=== PATIENT | male | born 1960 | race Caucasian/White ===

== ENCOUNTER 2019-12-07 04:57 | Emergency (ER) | payer OTHER ==
[~2019-12-07] VITALS: Ht 175.3 cm; Wt 113.4 kg
[2019-12-07] MEDS ORDERED: SODIUM CHLORIDE 0.9% 500 ML IVB ONE (08:42)
[2019-12-07] MEDS ORDERED: SODIUM CHLORIDE 0.9% 1,000 ML IV ONE (08:42)
[2019-12-07] MEDS ORDERED: PROMETHAZINE HCL 25 MG/ML 1ML IV PRN (08:45)
[2019-12-07] MEDS ORDERED: KETOROLAC TROMETH 30 MG/ML 1ML VIAL IV ONE (08:45)
[2019-12-07 08:48] LABS: Urine WBC None Seen /hpf (0 - 3)
[2019-12-07 08:54] LABS: Basophils # (auto) 0.1 10 ^3/uL (0-0.2); Hemoglobin 17.8 g/dL (13.5-17.5); Monocytes # (auto) 0.8 10 ^3/uL (0-1.3); Neutrophils # (auto) 6.4 10 ^3/uL (1.6-8.6)
[2019-12-07 08:55] LABS: Basophils % (auto) 0.9 % (0.0-2.0); Eosinophils # (auto) 0.2 10 ^3/uL (0-0.8); Eosinophils % (auto) 2.4 % (0.0-7.0); Hematocrit 52.6 % (41.0-53.0); Lymphocytes % (auto) 20.7 % (10.0-50.0); Mean Corpuscular Hemoglobin 33.3 pg (28.0-32.0); Mean Corpuscular Hgb Conc. 33.8 g/dL (32.0-36.0); Mean Corpuscular Volume 98.5 fL (80.0-100.0); Monocytes % (auto) 8.8 % (0.0-12.0); Neutrophils % (auto) 67.2 % (37.0-80.0); Nucleated Red Blood Cells % 0.1 %; Platelet Count (auto) 167 10^3/uL (140-450); Red Blood Cells 5.34 10^6/uL (4.5-5.90); Red Cell Distribution Width 13.3 % (11.8-14.3); White Blood Cell 9.6 10^3/uL (4.4-10.8)
[2019-12-07 09:01] LABS: Urine Bacteria NONE SEEN /hpf (None Seen); Urine Blood Negative /uL (Negative); Urine Specific Gravity 1.011 (1.001-1.035)
[2019-12-07 09:17] LABS: Albumin 3.9 g/dL (3.4-5.0); Anion Gap 3 (5-15); Blood Urea Nitrogen 16 mg/dL (7-18); Calcium 10.1 mg/dL (8.5-10.1); Carbon Dioxide 28 mmol/L (21-32); Chloride 108 mmol/L (98-107); Potassium 4.2 mmol/L (3.5-5.1); Sodium 139 mmol/L (136-145)
[2019-12-07 09:18] LABS: Alcohol, Urine < 3.0 mg/dL (0-10); Amphetamine Screen, Urine NEGATIVE (NEGATIVE); Barbiturate Scree,Urine NEGATIVE (NEGATIVE); Benzodiazephine Screen, Urine NEGATIVE (NEGATIVE); Cannabinoid Screen, Urine NEGATIVE (NEGATIVE); Cocaine Screen, Urine NEGATIVE (NEGATIVE); Opiate Scree,Urine NEGATIVE (NEGATIVE); Phencyclidine Screen, Urine NEGATIVE (NEGATIVE)
[2019-12-07 09:20] LABS: Alanine Aminotransferase 78 U/L (16-61); Aspartate Aminotransferase 73 U/L (15-37); BUN/Creatinine Ratio 13.7; GFR African American 82 mL/min; GFR Non-African American 67 mL/min; Glucose 102 mg/dL (74-106); Lipase 398 U/L (73-393)
[2019-12-07 09:25] LABS: Alkaline Phosphatase 91 U/L (45-117); Bilirubin, Total 1.1 mg/dL (0.2-1.0); Total Protein 7.7 g/dL (6.4-8.2)
[2019-12-07 11:00] VITALS: BP 131/85
== END 2019-12-07 11:46 | disposition home or self-care (01) ==
LOC: ER 04:57
DX: K40.20 Bilateral inguinal hernia, without obstruction or gangrene, not specified as recurrent (principal); R74.8 Abnormal levels of other serum enzymes; N40.0 Benign prostatic hyperplasia without lower urinary tract symptoms; R35.0 Frequency of micturition; K21.9 Gastro-esophageal reflux disease without esophagitis; I10 Essential (primary) hypertension; F17.210 Nicotine dependence, cigarettes, uncomplicated; Z90.49 Acquired absence of other specified parts of digestive tract
CPT/HCPCS: 36415; 71045; 74176; 80053; 80307; 81001; 83690; 83735; 84484; 85025; 93005; 96361; 96374; 96375; 99285; J1885; J2550; J7030; J7040

== ENCOUNTER 2020-03-03 07:13 | Inpatient (IN) | payer OTHER ==
[~2020-03-03] VITALS: Ht 175.3 cm; Wt 111.5 kg
[2020-03-03] MEDS ORDERED: NITROGLYCERIN 0.4 MG SL TAB SL ONE (07:30)
[2020-03-03] MEDS ORDERED: ASPirin 81 mg TAB PO ONE (07:30)
[2020-03-03 07:54] LABS: Basophils # (auto) 0.1 10 ^3/uL (0-0.2); Basophils % (auto) 0.9 % (0.0-2.0); Eosinophils # (auto) 0.2 10 ^3/uL (0-0.8); Eosinophils % (auto) 2.9 % (0.0-7.0); Hematocrit 50.4 % (41.0-53.0); Lymphocytes # (auto) 2.1 10 ^3/uL (0.4-5.4); Lymphocytes % (auto) 27.4 % (10.0-50.0); Mean Corpuscular Hemoglobin 32.8 pg (28.0-32.0); Mean Corpuscular Hgb Conc. 33.7 g/dL (32.0-36.0); Mean Corpuscular Volume 97.3 fL (80.0-100.0); Monocytes # (auto) 0.7 10 ^3/uL (0-1.3); Monocytes % (auto) 9.1 % (0.0-12.0); Neutrophils # (auto) 4.6 10 ^3/uL (1.6-8.6); Neutrophils % (auto) 59.7 % (37.0-80.0); Nucleated Red Blood Cells % 0.1 %; Platelet Count (auto) 168 10^3/uL (140-450); Red Blood Cells 5.19 10^6/uL (4.5-5.90); Red Cell Distribution Width 13.1 % (11.8-14.3); White Blood Cell 7.7 10^3/uL (4.4-10.8)
[2020-03-03 08:16] LABS: Albumin 3.4 g/dL (3.4-5.0); Potassium 3.9 mmol/L (3.5-5.1)
[2020-03-03 08:19] LABS: Urine Bacteria NONE SEEN /hpf (None Seen); Urine Blood Negative /uL (Negative); Urine Hyaline Cast FEW /lpf (0 - 2); Urine Mucus FEW (None Seen); Urine Specific Gravity 1.017 (1.001-1.035); Urine WBC 2 /hpf (0 - 3)
[2020-03-03 08:21] LABS: BUN/Creatinine Ratio 6.7; Bilirubin, Total 0.7 mg/dL (0.2-1.0); Total Protein 6.8 g/dL (6.4-8.2)
[2020-03-03] MEDS ORDERED: hydrALAZINE HCL 20 MG/ML VL IV PRN (12:15)
[2020-03-03] MEDS ORDERED: ONDANSETRON HCL 4 MG/2 ML VIAL IV PRN (12:15)
[2020-03-03] MEDS ORDERED: MORPHINE SULF INJ 2 MG/ML SYRINGE 1ML IV PRN ×2 (12:15)
[2020-03-03] MEDS ORDERED: NITROGLYCERIN 0.4 MG SL TAB SL PRN (12:15)
[2020-03-03] MEDS ORDERED: ALPRAZolam 0.25 MG TAB PO PRN (12:15)
[2020-03-03] MEDS ORDERED: HYDROcodone-ACET 5/325MG TAB PO PRN (12:15)
[2020-03-03] MEDS ORDERED: ACETAMINOPHEN 500 MG TAB PO PRN (12:15)
[2020-03-03 16:33] VITALS: BP 124/78
[2020-03-03] MEDS: TAMSULOSIN HYDROCHLORIDE 0.4 MG CAP PO SCH (18:00)
--- NOTE | 2020-03-03 19:30 | NUR ---
Opening Shift Note Assumed care of patient, awake and alert. No S/S of distress/SOB or pain. Instructed on POC and to call for assist PRN, will continue to monitor for changes Q1hr and PRN.
--- NOTE | 2020-03-03 21:35 | NUR ---
pt is having SOB, elevate HOB, O2 96% on 3L, VS stable, paged RT for CPAP initiation, paged hospitalist for breathing treatment, new order received, pt refused breathing treatment for now, will continue to monitor
[2020-03-03] MEDS ORDERED: ALBUTEROL SULF 2.5 MG/0.5ML(0.5%) NEB SOLN NEB PRN (21:45)
[2020-03-03 22:00] VITALS: BP 113/70
[2020-03-03] MEDS: METOPROLOL TARTRATE 25 MG TAB PO SCH ×2 (22:00→22:07)
[2020-03-03] MEDS: ATORVASTATIN 20 MG TAB PO SCH (22:07)
--- NOTE | 2020-03-03 23:50 | NUR ---
paged hospitalist regarding pt's critical value Trop=0.532. awaiting for callback
[2020-03-04] MEDS ORDERED: GABA300C10 PO (01:19)
[2020-03-04] MEDS ORDERED: ATOR10TA52 PO (01:19)
[2020-03-04] MEDS ORDERED: ATEN50TA PO (01:19)
[2020-03-04] MEDS ORDERED: PANT40TA2 PO (01:19)
[2020-03-04] MEDS ORDERED: ALBU0.5N2 IN (01:19)
[2020-03-04] MEDS ORDERED: TAMS0.4C36 PO (01:21)
--- NOTE | 2020-03-04 02:35 | NUR ---
spoke with hospitalist regarding pt's trop critical value result. no new order received
[2020-03-04 05:00] VITALS: BP 131/78
--- NOTE | 2020-03-04 06:40 | NUR ---
Respiratory note: PT OFF CPAP MACHINE. PT FOUND ON ROOM AIR SP02 97%, HR 86, RR 20. PT IN NO RESPIRATORY DISTRESS AT THIS TIME. NO INDICATION FOR TX AT THIS TIME. PT AWARE TO HAVE RT PAGED IF SOB.
--- NOTE | 2020-03-04 07:25 | NUR ---
pt went down to smoke without asking me. came back after 12mins. informed the risk,pt signed AMA to smoke
--- NOTE | 2020-03-04 07:30 | NUR ---
closing note endorsed care to RAY Edwards. Denies pain at this time
[2020-03-04 09:00] VITALS: BP 129/87
[2020-03-04 09:24] LABS: Basophils # (auto) 0.1 10 ^3/uL (0-0.2); Basophils % (auto) 0.8 % (0.0-2.0); Eosinophils # (auto) 0.2 10 ^3/uL (0-0.8); Eosinophils % (auto) 2.7 % (0.0-7.0); Hematocrit 48.5 % (41.0-53.0); Hemoglobin 16.3 g/dL (13.5-17.5); Lymphocytes # (auto) 1.7 10 ^3/uL (0.4-5.4); Lymphocytes % (auto) 24.6 % (10.0-50.0); Mean Corpuscular Hemoglobin 32.9 pg (28.0-32.0); Mean Corpuscular Hgb Conc. 33.6 g/dL (32.0-36.0); Mean Corpuscular Volume 97.9 fL (80.0-100.0); Monocytes # (auto) 0.4 10 ^3/uL (0-1.3); Monocytes % (auto) 5.2 % (0.0-12.0); Neutrophils # (auto) 4.7 10 ^3/uL (1.6-8.6); Neutrophils % (auto) 66.7 % (37.0-80.0); Platelet Count (auto) 152 10^3/uL (140-450); Red Blood Cells 4.95 10^6/uL (4.5-5.90); Red Cell Distribution Width 13.1 % (11.8-14.3); White Blood Cell 7.1 10^3/uL (4.4-10.8)
[2020-03-04 09:46] LABS: INR 1.03 (0.9-1.15); Partial Thromboplastin Time 25.6 sec (23.0-31.2); Potassium 4.2 mmol/L (3.5-5.1)
[2020-03-04] MEDS ORDERED: ASPirin-EC 81 mg tab PO SCH (10:00)
[2020-03-04] MEDS ORDERED: PANTOPRAZOLE 40 MG TAB PO SCH (10:00)
[2020-03-04] MEDS: METOPROLOL TARTRATE 25 MG TAB PO SCH ×2 (10:21→21:25)
--- NOTE | 2020-03-04 11:15 | NUR ---
Patient down to smoke.
--- NOTE | 2020-03-04 11:24 | NUR ---
patient back from smoking.
[2020-03-04] MEDS ORDERED: MET25T PO (11:56)
[2020-03-04] MEDS ORDERED: ASPI-543 PO (11:56)
[2020-03-04] MEDS ORDERED: NICOTINE 21MG/24 HR TOPICAL PATCH TD SCH (12:00)
--- NOTE | 2020-03-04 12:00 | NUR ---
covid swab taken and sent down to lab.
[2020-03-04] MEDS ORDERED: HEPARIN DRIP/D5W 100UNITS/ML 250 ML IV SCH (12:15)
[2020-03-04 13:00] VITALS: BP 137/78
--- NOTE | 2020-03-04 13:06 | NUR ---
Dr Bree gama in regards to heparin bolus, pharmacy needs clarification if he needs a blous or not. Addendum: 03/04/20 at 1308 by Grace Galvan RN correction "bolus"
--- NOTE | 2020-03-04 13:08 | NUR ---
Bree Pierce called back hold heparin drip since trop trending down. update Dr when Dylan sees patients on what he wants to do next.
[2020-03-04 13:09] LABS: Basophils # (auto) 0.1 10 ^3/uL (0-0.2); Eosinophils # (auto) 0.2 10 ^3/uL (0-0.8); Hemoglobin 17.4 g/dL (13.5-17.5); Lymphocytes # (auto) 2.3 10 ^3/uL (0.4-5.4); Mean Corpuscular Hemoglobin 33.2 pg (28.0-32.0); Mean Corpuscular Hgb Conc. 34.2 g/dL (32.0-36.0); Mean Corpuscular Volume 97.3 fL (80.0-100.0); Monocytes # (auto) 0.6 10 ^3/uL (0-1.3); Monocytes % (auto) 8.3 % (0.0-12.0); Neutrophils # (auto) 4.6 10 ^3/uL (1.6-8.6); Neutrophils % (auto) 59.7 % (37.0-80.0); Platelet Count (auto) 184 10^3/uL (140-450); Red Blood Cells 5.24 10^6/uL (4.5-5.90); Red Cell Distribution Width 13.2 % (11.8-14.3); White Blood Cell 7.8 10^3/uL (4.4-10.8)
[2020-03-04 13:43] LABS: INR 0.99 (0.9-1.15); Partial Thromboplastin Time 24.6 sec (23.0-31.2)
[2020-03-04] MEDS ORDERED: ENOXAPARIN SOD 120 MG/0.8 ML SYRINGE SC ONE (14:15)
--- NOTE | 2020-03-04 14:26 | NUR ---
1245 03/04/20 - Contacted by [facility] case management manager Joleen Ann regarding pending transfer of this patient to [facility]. I provided her with a verbal update on the status of the patient. Contacted [facility] at [phone] placed patient on 'will call" status. Provided [facility] with authorization [id number] provided by [facility] case management manager. COVID test requested by [facility] case management manager. Faxed to [facility] at [phone] face sheet, H/P, ECHO, labs, meds, and discharge summary. Informed nurse SM of information as stated above. Pending bed availability and results of COVID test.
--- NOTE | 2020-03-04 15:57 | NUR ---
covid results given to alonzo casework manager
[2020-03-04 16:43] VITALS: BP 131/74
[2020-03-04] MEDS: TAMSULOSIN HYDROCHLORIDE 0.4 MG CAP PO SCH (17:49)
--- NOTE | 2020-03-04 18:10 | NUR ---
received call with room number 201a and report # [phone] ext [phone].
--- NOTE | 2020-03-04 18:30 | NUR ---
gave report to RN at [facility].
--- NOTE | 2020-03-04 18:31 | NUR ---
Called [facility] for transport ETA [id number].
--- NOTE | 2020-03-04 18:37 | NUR ---
updated dr kaye on patients transfer. updated patient.
--- NOTE | 2020-03-04 19:30 | NUR ---
Opening Shift Note Assumed care of patient, awake and alert. No S/S of distress/SOB or pain. As per report, pt is ready to go, awaiting for transport between 1900 and 1999.
[2020-03-04] MEDS: ATORVASTATIN 20 MG TAB PO SCH (21:24)
--- NOTE | 2020-03-04 22:15 | NUR ---
pt transferred to [facility], VS stable, denies any distress/pain at this time
[2020-03-05] MEDS ORDERED: ASPirin 81 mg TAB PO SCH (10:00)
== END 2020-03-04 22:35 | disposition short-term general hospital (02) | DRG 282 ==
LOC: EDBD 07:13 → ER 07:13 → TELE 07:14 → TELE-WESTW 18:11
PROVIDERS: ADMIT Nurse Practitioner Acute Care; ATTEND Internal Medicine
PROC: 5A09357 Assistance with Respiratory Ventilation, Less than 24 Consecutive Hours, Continuous Positive Airway Pressure (ICD-10-PCS; principal; 2020-03-03)
DX: I21.4 Non-ST elevation (NSTEMI) myocardial infarction (principal); E66.9 Obesity, unspecified; N40.0 Benign prostatic hyperplasia without lower urinary tract symptoms; I10 Essential (primary) hypertension; Z20.828 Contact with and (suspected) exposure to other viral communicable diseases; G47.33 Obstructive sleep apnea (adult) (pediatric); E78.5 Hyperlipidemia, unspecified; K21.9 Gastro-esophageal reflux disease without esophagitis; Z86.73 Personal history of transient ischemic attack (TIA), and cerebral infarction without residual deficits; Z90.49 Acquired absence of other specified parts of digestive tract; Z72.0 Tobacco use; Z88.0 Allergy status to penicillin; Z88.8 Allergy status to other drugs, medicaments and biological substances; Z68.36 Body mass index [BMI] 36.0-36.9, adult
CPT/HCPCS: 36415; 71045; 80048; 80053; 80061; 81001; 84443; 84484; 85025; 85379; 85610; 85730; 86141; 93005; 93306; 93886; 94660; G0378

== ENCOUNTER 2021-05-05 22:32 | Inpatient (IN) | payer OTHER, MEDICAID ==
[~2021-05-05] VITALS: Ht 175.3 cm; Wt 108.5 kg
[~2021-05-05 22:32] MED LIST: ALBU0.5N2 IN; ASPI-543 PO; ATOR10TA52 PO; GABA300C10 PO; MET25T PO; PANT40TA2 PO; TAMS0.4C36 PO
[2021-05-06] MEDS ORDERED: MORPHINE SULFATE 4 MG/ML SYR/VIAL IV ONE (00:15)
[2021-05-06 00:30] LABS: Basophils # (auto) 0 10 ^3/uL (0-0.2); Basophils % (auto) 0.2 % (0.0-2.0); Eosinophils # (auto) 0 10 ^3/uL (0-0.8); Eosinophils % (auto) 0.5 % (0.0-7.0); Hematocrit 46.4 % (41.0-53.0); Hemoglobin 15.7 g/dL (13.5-17.5); Lymphocytes # (auto) 1.8 10 ^3/uL (0.4-5.4); Lymphocytes % (auto) 22.7 % (10.0-50.0); Mean Corpuscular Hemoglobin 32.4 pg (28.0-32.0); Mean Corpuscular Hgb Conc. 33.9 g/dL (32.0-36.0); Mean Corpuscular Volume 95.8 fL (80.0-100.0); Monocytes # (auto) 0.7 10 ^3/uL (0-1.3); Monocytes % (auto) 9.4 % (0.0-12.0); Neutrophils # (auto) 5.3 10 ^3/uL (1.6-8.6); Neutrophils % (auto) 67.2 % (37.0-80.0); Nucleated Red Blood Cells % 0.1 %; Red Blood Cells 4.85 10^6/uL (4.5-5.90); Red Cell Distribution Width 12.9 % (11.8-14.3); White Blood Cell 7.9 10^3/uL (4.4-10.8)
[2021-05-06 00:37] LABS: Potassium 3.8 mmol/L (3.5-5.1)
[2021-05-06] MEDS ORDERED: MORPHINE SULFATE 4 MG/ML SYR/VIAL ONE (00:41)
[2021-05-06] MEDS ORDERED: MORPHINE SULFATE INJECTION 2 MG/ML SYRG ONE (00:43)
[2021-05-06 00:44] LABS: BUN/Creatinine Ratio 8.6; Bilirubin, Total 0.9 mg/dL (0.2-1.0); Calcium 8.9 mg/dL (8.5-10.1); Magnesium 1.7 mg/dL (1.6-2.6); Total Protein 6.7 g/dL (6.4-8.2)
[2021-05-06] MEDS ORDERED: CLOPIDOGREL BISULFATE 75 MG TAB PO ONE (01:30)
[2021-05-06] MEDS ORDERED: ASPirin 81 mg TAB PO ONE (01:30)
[2021-05-06] MEDS ORDERED: ASPirin 81 mg TAB ONE (01:38)
[2021-05-06] MEDS ORDERED: CLOPIDOGREL 300 MG TAB ONE (01:42)
[2021-05-06] MEDS ORDERED: HEPARIN DRIP/D5W 100UNITS/ML 250 ML IV SCH (02:45)
[2021-05-06] MEDS ORDERED: HEPARIN SODIUM (PORCINE) 5000 UNITS/ML 1ML VIAL IV ONE (02:45)
[2021-05-06] MEDS ORDERED: MORPHINE SULFATE INJECTION 2 MG/ML SYRG IV PRN (02:45)
[2021-05-06] MEDS ORDERED: ONDANSETRON HCL 4 MG/2 ML VIAL IV PRN (02:45)
[2021-05-06] MEDS ORDERED: NITROGLYCERIN 0.4 MG SL TAB SL PRN (02:45)
[2021-05-06 04:13] LABS: Basophils # (auto) 0 10 ^3/uL (0-0.2); Basophils % (auto) 0.4 % (0.0-2.0); Eosinophils # (auto) 0.1 10 ^3/uL (0-0.8); Eosinophils % (auto) 0.7 % (0.0-7.0); Hematocrit 46.3 % (41.0-53.0); Hemoglobin 15.9 g/dL (13.5-17.5); Lymphocytes # (auto) 2.3 10 ^3/uL (0.4-5.4); Lymphocytes % (auto) 27.9 % (10.0-50.0); Mean Corpuscular Hemoglobin 32.6 pg (28.0-32.0); Mean Corpuscular Hgb Conc. 34.3 g/dL (32.0-36.0); Mean Corpuscular Volume 95.1 fL (80.0-100.0); Monocytes # (auto) 0.9 10 ^3/uL (0-1.3); Monocytes % (auto) 10.8 % (0.0-12.0); Neutrophils # (auto) 4.9 10 ^3/uL (1.6-8.6); Neutrophils % (auto) 60.2 % (37.0-80.0); Nucleated Red Blood Cells % 0.2 %; Red Blood Cells 4.87 10^6/uL (4.5-5.90); Red Cell Distribution Width 12.7 % (11.8-14.3); White Blood Cell 8.1 10^3/uL (4.4-10.8)
[2021-05-06 04:18] LABS: INR 1.1 (0.9-1.15); Partial Thromboplastin Time 27.5 sec (23.6-33.0)
[2021-05-06] MEDS: PANTOPRAZOLE 40 MG/10 ML VIAL INJ IV SCH (10:05)
[2021-05-06] MEDS: NICOTINE 14 MG/24HR TOPICAL PATCH TD SCH (12:44)
[2021-05-06] MEDS ORDERED: ANGIOMAX 250 MG VIAL IV ONE (13:10)
[2021-05-06] MEDS ORDERED: fentaNYL CITRATE 100 MCG/2 ML VL ONE (13:11)
[2021-05-06] MEDS ORDERED: SODIUM CHL 0.9% 0 ML ONE (13:11)
[2021-05-06] MEDS ORDERED: MIDAZOLAM HCL 2MG/2ML 2ml VIAL (1mg/ml) ONE (13:11)
[2021-05-06] MEDS ORDERED: HEPARIN SODIUM (PORCINE) 5000 UNITS/ML 1ML VIAL ONE (13:19)
[2021-05-06] MEDS ORDERED: VERAPAMIL 2.5MG/ML INJ 2ML VIAL IV ONE (13:19)
[2021-05-06] MEDS ORDERED: IODIXANOL 320MG/ML 100ML BTL IV ONE ×2 (13:25→13:45)
[2021-05-06] MEDS ORDERED: LIDOCAINE 2%HCL (LOCAL ANESTH.) INJ 20ML MDV ONE (13:25)
[2021-05-06] MEDS ORDERED: BUPIVACAINE HCL 0 ML ONE (14:04)
[2021-05-06] MEDS ORDERED: BUPIVACAINE 0.25% INJ 50ML VIAL ONE (14:04)
[2021-05-06 20:01] LABS: INR 1.19 (0.9-1.15); Partial Thromboplastin Time 29.3 sec (23.6-33.0)
[2021-05-06 22:00] VITALS: BP 116/80
[2021-05-07 05:00] VITALS: BP 131/85
[2021-05-07 08:15] LABS: Basophils # (auto) 0 10 ^3/uL (0-0.2); Basophils % (auto) 0.1 % (0.0-2.0); Eosinophils # (auto) 0 10 ^3/uL (0-0.8); Eosinophils % (auto) 0.2 % (0.0-7.0); Hematocrit 45.4 % (41.0-53.0); Hemoglobin 15.5 g/dL (13.5-17.5); Lymphocytes # (auto) 1.5 10 ^3/uL (0.4-5.4); Lymphocytes % (auto) 15.2 % (10.0-50.0); Mean Corpuscular Hemoglobin 32.6 pg (28.0-32.0); Mean Corpuscular Hgb Conc. 34.3 g/dL (32.0-36.0); Mean Corpuscular Volume 95.3 fL (80.0-100.0); Monocytes # (auto) 1.2 10 ^3/uL (0-1.3); Monocytes % (auto) 12.2 % (0.0-12.0); Neutrophils # (auto) 7.3 10 ^3/uL (1.6-8.6); Neutrophils % (auto) 72.3 % (37.0-80.0); Nucleated Red Blood Cells % 0.2 %; Red Blood Cells 4.76 10^6/uL (4.5-5.90); Red Cell Distribution Width 13.1 % (11.8-14.3); White Blood Cell 10.1 10^3/uL (4.4-10.8)
[2021-05-07 08:24] LABS: Potassium 3.8 mmol/L (3.5-5.1)
[2021-05-07 08:43] LABS: Albumin 2.8 g/dL (3.4-5.0); BUN/Creatinine Ratio 12.7; Bilirubin, Total 1.2 mg/dL (0.2-1.0); Calcium 9.1 mg/dL (8.5-10.1); Total Protein 6.7 g/dL (6.4-8.2)
[2021-05-07 09:00] VITALS: BP 138/88
[2021-05-07] MEDS: PANTOPRAZOLE 40 MG/10 ML VIAL INJ IV SCH (09:16)
[2021-05-07] MEDS: NICOTINE 14 MG/24HR TOPICAL PATCH TD SCH (09:18)
[2021-05-07] MEDS ORDERED: ASPirin 81 mg TAB PO SCH (10:00)
[2021-05-07] MEDS ORDERED: CLOPIDOGREL BISULFATE 75 MG TAB PO SCH (10:00)
[2021-05-07 13:00] VITALS: BP 123/82
[2021-05-07] MEDS ORDERED: LOPE2CAP PO (14:10)
[2021-05-07] MEDS ORDERED: LOSA25TA38 PO (14:10)
[2021-05-07] MEDS ORDERED: TIOT17SP IN (14:10)
[2021-05-07] MEDS ORDERED: GABA600T PO (14:10)
[2021-05-07] MEDS ORDERED: ATOR20TA PO (14:10)
[2021-05-07] MEDS ORDERED: BUDE1AER5 IN (14:10)
[2021-05-07] MEDS ORDERED: TRAM50TA2 PO (14:10)
[2021-05-07] MEDS ORDERED: SILD20TA2 PO (14:10)
[2021-05-07] MEDS ORDERED: ALBU108A5 IN (14:10)
[2021-05-07] MEDS ORDERED: METH500T22 PO (14:10)
[2021-05-07] MEDS ORDERED: TICA90TA PO (14:10)
[2021-05-07] MEDS ORDERED: ASPI1CHW15 PO (16:12)
[2021-05-07 17:00] VITALS: BP 122/84
[2021-05-07 17:32] VITALS: BP 123/82
== END 2021-05-07 19:15 | disposition home health service (06) | DRG 280 ==
LOC: ER 22:32 → EDUNIT# 22:32 → EDBD 22:32 → OVERFLOW 05-06 02:38 → TELE-WESTW 05-06 17:36
PROVIDERS: ADMIT Nurse Practitioner; ATTEND Internal Medicine
PROC: 4A023N7 Measurement of Cardiac Sampling and Pressure, Left Heart, Percutaneous Approach (ICD-10-PCS; 2021-05-06)
PROC: B211YZZ Fluoroscopy of Multiple Coronary Arteries using Other Contrast (ICD-10-PCS; 2021-05-06)
PROC: 5A09357 Assistance with Respiratory Ventilation, Less than 24 Consecutive Hours, Continuous Positive Airway Pressure (ICD-10-PCS; principal; 2021-05-07)
DX: I21.4 Non-ST elevation (NSTEMI) myocardial infarction (principal); U07.1 COVID-19; J12.82 Pneumonia due to coronavirus disease 2019; E66.9 Obesity, unspecified; I10 Essential (primary) hypertension; F17.210 Nicotine dependence, cigarettes, uncomplicated; E78.5 Hyperlipidemia, unspecified; I25.10 Atherosclerotic heart disease of native coronary artery without angina pectoris; K21.9 Gastro-esophageal reflux disease without esophagitis; I27.20 Pulmonary hypertension, unspecified; Z68.34 Body mass index [BMI] 34.0-34.9, adult; Z79.82 Long term (current) use of aspirin; Z86.73 Personal history of transient ischemic attack (TIA), and cerebral infarction without residual deficits; Z91.19 Patient's noncompliance with other medical treatment and regimen; Z95.5 Presence of coronary angioplasty implant and graft; Z88.0 Allergy status to penicillin; Z88.8 Allergy status to other drugs, medicaments and biological substances; Z90.49 Acquired absence of other specified parts of digestive tract
CPT/HCPCS: 36415; 71045; 80053; 83735; 83880; 84484; 85025; 85379; 85610; 85730; 86850; 86900; 86901; 87426; 93005; 93306; 93458; 94660; 96365; 96375; 99152; 99153; C9113; G0378; J2250; J3490; Q9967

== ENCOUNTER 2023-08-25 14:21 | Emergency (ER) | payer OTHER ==
[~2023-08-25] VITALS: Ht 175.3 cm; Wt 113.1 kg
[~2023-08-25 14:21] MED LIST changes: -ALBU0.5N2 IN; +ALBU108A5 IN; -ASPI-543 PO; +ASPI-736 PO; -ATOR10TA52 PO; +ATOR20TA PO; +BUDE1AER5 IN; -GABA300C10 PO; +GABA600T PO; +LOPE2CAP PO; +LOSA-533 PO; -MET25T PO; +METH-1181 PO; -PANT40TA2 PO; +SILD20TA41 PO; -TAMS0.4C36 PO; +TICA90TA PO; +TIOT17SP IN; +TRAM50TA2 PO
[2023-08-25] MEDS: INSULIN LISPRO (HUMAN) 100 UNITS/ML ML SC ONE ×2 (15:00→19:01)
[2023-08-25 15:39] LABS: Urine Bacteria None Seen /hpf (None Seen); Urine WBC None Seen /hpf (0 - 3)
[2023-08-25] MEDS: SODIUM CHLORIDE 0.9% 1,000 ML IV ONE ×2 (15:39→16:30)
[2023-08-25 15:48] LABS: Basophils # (auto) 0.1 10 ^3/uL (0-0.2); Basophils % (auto) 0.9 % (0.0-2.0); Eosinophils # (auto) 0.2 10 ^3/uL (0-0.8); Eosinophils % (auto) 2.8 % (0.0-7.0); Hematocrit 49.5 % (41.0-53.0); Hemoglobin 16.4 g/dL (13.5-17.5); Lymphocytes # (auto) 2.4 10 ^3/uL (0.4-5.4); Lymphocytes % (auto) 28.8 % (10.0-50.0); Mean Corpuscular Hemoglobin 30.3 pg (28.0-32.0); Mean Corpuscular Hgb Conc. 33.2 g/dL (32.0-36.0); Mean Corpuscular Volume 91.5 fL (80.0-100.0); Monocytes # (auto) 0.6 10 ^3/uL (0-1.3); Monocytes % (auto) 6.7 % (0.0-12.0); Neutrophils # (auto) 5.1 10 ^3/uL (1.6-8.6); Neutrophils % (auto) 60.8 % (37.0-80.0); Nucleated Red Blood Cells % 0.1 %; Red Blood Cells 5.41 10^6/uL (4.5-5.90); Red Cell Distribution Width 13.6 % (11.8-14.3); White Blood Cell 8.4 10^3/uL (4.4-10.8)
[2023-08-25 15:58] LABS: Urine Blood Negative /uL (Negative); Urine Clarity Clear (Clear); Urine Color Light-Yellow (Yellow); Urine Protein, UAD Negative (Negative); Urine Urobilinogen Normal (Negative); Urine pH 6.5 (5.0-9.0)
[2023-08-25 16:07] LABS: Alanine Aminotransferase 39 U/L (7-40); Albumin 4.3 g/dL (3.2-4.8); Alkaline Phosphatase 124 U/L (46-116); Anion Gap 11 (5-15); Aspartate Aminotransferase 22 U/L (13-40); BUN/Creatinine Ratio 12.8 (10.0-20.0); Bilirubin, Total 0.4 mg/dL (0.2-1.0); Blood Urea Nitrogen 17 mg/dL (9-23); Calcium 10.6 mg/dL (8.5-10.1); Carbon Dioxide 23 mmol/L (20-30); Chloride 99 mmol/L (98-107); Potassium 4.3 mmol/L (3.5-5.1); Sodium 133 mmol/L (136-145); Total Protein 6.8 g/dL (5.7-8.2)
[2023-08-25 16:11] LABS: Glucose 579 mg/dL (74-106)
[2023-08-25] MEDS ORDERED: INSULIN LISPRO (HUMAN) 100 UNITS/ML ML SC ONE (16:30)
[2023-08-25] MEDS ORDERED: METF-370 PO (19:54)
[2023-08-25 20:28] VITALS: BP 129/54; RESP 18; TEMP 98.1
[2023-08-25 20:29] VITALS: PULSE 82; O2SAT 96
== END 2023-08-25 20:42 | disposition home or self-care (01) ==
LOC: ER 14:21
DX: E11.65 Type 2 diabetes mellitus with hyperglycemia (principal); F17.210 Nicotine dependence, cigarettes, uncomplicated; K21.9 Gastro-esophageal reflux disease without esophagitis; I10 Essential (primary) hypertension; E66.01 Morbid (severe) obesity due to excess calories; Z68.36 Body mass index [BMI] 36.0-36.9, adult; Z90.49 Acquired absence of other specified parts of digestive tract; Z79.899 Other long term (current) drug therapy; Z88.4 Allergy status to anesthetic agent; Z88.0 Allergy status to penicillin
CPT/HCPCS: 36415; 80053; 81001; 82010; 82962; 83880; 84484; 85025; 96360; 96361; 99285; J1815; J7030

== ENCOUNTER 2023-08-26 17:39 | Emergency (ER) | payer OTHER ==
[~2023-08-26] VITALS: Ht 175.3 cm; Wt 112.9 kg
[~2023-08-26 17:39] MED LIST changes: +METF-370 PO
[2023-08-26 17:49] VITALS: BP 158/88
[2023-08-26 18:35] LABS: Basophils # (auto) 0.1 10 ^3/uL (0-0.2); Basophils % (auto) 0.8 % (0.0-2.0); Eosinophils # (auto) 0.2 10 ^3/uL (0-0.8); Eosinophils % (auto) 3.3 % (0.0-7.0); Hematocrit 46.7 % (41.0-53.0); Hemoglobin 15.6 g/dL (13.5-17.5); Lymphocytes # (auto) 2.2 10 ^3/uL (0.4-5.4); Lymphocytes % (auto) 31.1 % (10.0-50.0); Mean Corpuscular Hemoglobin 30.4 pg (28.0-32.0); Mean Corpuscular Hgb Conc. 33.3 g/dL (32.0-36.0); Mean Corpuscular Volume 91.1 fL (80.0-100.0); Monocytes # (auto) 0.4 10 ^3/uL (0-1.3); Monocytes % (auto) 6.3 % (0.0-12.0); Neutrophils # (auto) 4.1 10 ^3/uL (1.6-8.6); Neutrophils % (auto) 58.5 % (37.0-80.0); Red Blood Cells 5.12 10^6/uL (4.5-5.90)
[2023-08-26 18:40] LABS: Alanine Aminotransferase 33 U/L (7-40); Alkaline Phosphatase 104 U/L (46-116); Aspartate Aminotransferase 26 U/L (13-40); Calcium 9.8 mg/dL (8.7-10.4); Carbon Dioxide 24 mmol/L (20-30); Chloride 103 mmol/L (98-107)
[2023-08-26 18:41] LABS: Albumin 3.7 g/dL (3.2-4.8); Anion Gap 7 (5-15); BUN/Creatinine Ratio 12.3 (10.0-20.0); Bilirubin, Total 0.5 mg/dL (0.2-1.0); Blood Urea Nitrogen 15 mg/dL (9-23); Potassium 4.1 mmol/L (3.5-5.1); Sodium 134 mmol/L (136-145); Total Protein 6.2 g/dL (5.7-8.2)
[2023-08-26 18:43] VITALS: PULSE 85; RESP 19; O2SAT 95
[2023-08-26 18:46] LABS: Glucose 405 mg/dL (74-106)
== END 2023-08-26 18:47 | disposition home or self-care (01) ==
LOC: ER 17:39
DX: E11.65 Type 2 diabetes mellitus with hyperglycemia (principal); I10 Essential (primary) hypertension; K21.9 Gastro-esophageal reflux disease without esophagitis; F17.210 Nicotine dependence, cigarettes, uncomplicated; Z98.890 Other specified postprocedural states; Z88.0 Allergy status to penicillin; Z88.8 Allergy status to other drugs, medicaments and biological substances; Z79.899 Other long term (current) drug therapy
CPT/HCPCS: 36415; 80053; 82962; 84484; 85025

== ENCOUNTER 2023-10-02 12:17 | Emergency (ER) | payer OTHER ==
[~2023-10-02] VITALS: Ht 175.3 cm; Wt 115.8 kg
[2023-10-02 12:18] VITALS: BP 137/80; PULSE 81; RESP 20; O2SAT 95
[2023-10-02 12:44] LABS: Urine Bacteria None Seen /hpf (None Seen); Urine WBC None Seen /hpf (0 - 3)
[2023-10-02 12:59] LABS: Urine Blood Negative /uL (Negative); Urine Clarity Clear (Clear); Urine Color Light-Yellow (Yellow); Urine Protein, UAD Negative (Negative); Urine Specific Gravity 1.011 (1.001-1.035); Urine Urobilinogen Normal (Negative); Urine pH 5.5 (5.0-9.0)
[2023-10-02 13:33] LABS: Basophils # (auto) 0.1 10 ^3/uL (0-0.2); Basophils % (auto) 1.1 % (0.0-2.0); Eosinophils # (auto) 0.2 10 ^3/uL (0-0.8); Hematocrit 49.5 % (41.0-53.0); Hemoglobin 16.7 g/dL (13.5-17.5); Lymphocytes # (auto) 1.7 10 ^3/uL (0.4-5.4); Lymphocytes % (auto) 28.9 % (10.0-50.0); Mean Corpuscular Hemoglobin 31.1 pg (28.0-32.0); Mean Corpuscular Hgb Conc. 33.7 g/dL (32.0-36.0); Mean Corpuscular Volume 92.5 fL (80.0-100.0); Monocytes # (auto) 0.4 10 ^3/uL (0-1.3); Monocytes % (auto) 6.9 % (0.0-12.0); Neutrophils # (auto) 3.5 10 ^3/uL (1.6-8.6); Neutrophils % (auto) 60.1 % (37.0-80.0); Red Blood Cells 5.36 10^6/uL (4.5-5.90); Red Cell Distribution Width 14.3 % (11.8-14.3); White Blood Cell 5.9 10^3/uL (4.4-10.8)
[2023-10-02 13:46] LABS: Anion Gap 6 (5-15); Carbon Dioxide 24 mmol/L (20-30); Chloride 106 mmol/L (98-107); Potassium 3.8 mmol/L (3.5-5.1); Sodium 136 mmol/L (136-145)
[2023-10-02 13:52] LABS: BUN/Creatinine Ratio 5.2 (10.0-20.0); Blood Urea Nitrogen 6 mg/dL (9-23); Glucose 287 mg/dL (74-106)
[2023-10-02 13:57] LABS: INR 1.04 (0.9-1.15); Partial Thromboplastin Time 26.2 SEC (24.5-34.5)
[2023-10-02] MEDS ORDERED: HYDR2.5C39 TOP (14:36)
[2023-10-02] MEDS: PANTOPRAZOLE 40 MG TAB PO ONE (14:51)
== END 2023-10-02 14:54 | disposition left against medical advice (07) ==
LOC: ER 12:17
DX: E11.65 Type 2 diabetes mellitus with hyperglycemia (principal); K64.4 Residual hemorrhoidal skin tags; K21.9 Gastro-esophageal reflux disease without esophagitis; I10 Essential (primary) hypertension; F17.210 Nicotine dependence, cigarettes, uncomplicated; Z90.49 Acquired absence of other specified parts of digestive tract; Z88.0 Allergy status to penicillin; Z88.6 Allergy status to analgesic agent
CPT/HCPCS: 36415; 80048; 81001; 84484; 85025; 85610; 85730

== ENCOUNTER 2024-02-08 11:21 | Emergency (ER) | payer OTHER ==
[~2024-02-08] VITALS: Ht 175.3 cm; Wt 117.0 kg
[~2024-02-08 11:21] MED LIST changes: +HYDR2.5C39 TOP
[2024-02-08] MEDS ORDERED: CIPRSUS OT (12:27)
[2024-02-08] MEDS ORDERED: CEPH500C PO (12:27)
[2024-02-08 12:35] VITALS: BP 128/78; PULSE 83; RESP 18; TEMP 98.6; O2SAT 95
== END 2024-02-08 12:56 | disposition home or self-care (01) ==
LOC: ER 11:21
DX: S01.332A Puncture wound without foreign body of left ear, initial encounter (principal); H60.92 Unspecified otitis externa, left ear; I10 Essential (primary) hypertension; E11.9 Type 2 diabetes mellitus without complications; K21.9 Gastro-esophageal reflux disease without esophagitis; I25.2 Old myocardial infarction; F17.210 Nicotine dependence, cigarettes, uncomplicated; Z90.49 Acquired absence of other specified parts of digestive tract; Z98.890 Other specified postprocedural states; Z88.0 Allergy status to penicillin; Z88.8 Allergy status to other drugs, medicaments and biological substances; Z79.82 Long term (current) use of aspirin; Z79.84 Long term (current) use of oral hypoglycemic drugs; Z79.02 Long term (current) use of antithrombotics/antiplatelets; Z79.899 Other long term (current) drug therapy; W57.XXXA Bitten or stung by nonvenomous insect and other nonvenomous arthropods, initial encounter; Y93.89 Activity, other specified; Y92.89 Other specified places as the place of occurrence of the external cause; Y99.8 Other external cause status